=== PATIENT | female | born 2000 | race Caucasian/White ===

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

== ENCOUNTER 2018-08-21 17:32 | Emergency (ER) | payer BC ==
[2018-08-21 18:09] VITALS: BP 124/80
--- NOTE | 2018-08-21 18:28 | ED ---
Throat Pain/Nasal Congestion - HPI Summary HPI Summary: 18 yr old female with the complaint of sore throat. Onset four days ago. The patient has sore throat, and no other symptoms. She denies runny nose, post nasal drip, cough. She has not had fever. She has not had drooling. - History of Current Complaint Chief Complaint: UCGeneralIllness Time Seen by Provider: 08/21/18 18:13 - Allergies/Home Medications Allergies/Adverse Reactions: Allergies Allergy/AdvReac Type Severity Reaction Status Date / Time ibuprofen Allergy Anaphylatic Verified 08/21/18 18:10 Shock Home Medications: Home Medications Acetaminophen [Tylenol Extra Strength] 1,000 mg PO DAILY 08/21/18 [History Confirmed 08/21/18] PMH/Surg Hx/FS Hx/Imm Hx Infectious Disease History: No Infectious Disease History: Denies: Traveled Outside the [place] in Last 30 Days - Family History Known Family History: Positive: None Negative: Respiratory Disease - Social History Occupation: Student Alcohol Use: None Substance Use Type: Reports: None Smoking Status (MU): Never Smoked Tobacco Have You Smoked in the Last Year: No Review of Systems Constitutional: Negative Positive: Sore Throat All Other Systems Reviewed And Are Negative: Yes Physical Exam Triage Information Reviewed: Yes Vital Signs On Initial Exam: Initial Vitals Temp Pulse Resp BP Pulse Ox 99.0 F 97 16 124/80 100 08/21/18 18:06 08/21/18 18:06 08/21/18 18:06 08/21/18 18:06 08/21/18 18:06 Vital Signs Reviewed: Yes Appearance: Positive: Well-Appearing, No Pain Distress Skin: Positive: Warm, Skin Color Reflects Adequate Perfusion Head/Face: Positive: Normal Head/Face Inspection Eyes: Positive: EOMI, DIAMANTE ENT: Positive: Pharyngeal erythema, TMs normal. Negative: Nasal congestion, Nasal drainage Neck: Positive: Nontender, No Lymphadenopathy Respiratory/Lung Sounds: Positive: Clear to Auscultation, Breath Sounds Present Cardiovascular: Positive: RRR. Negative: Murmur Abdomen Description: Negative: Distended Musculoskeletal: Positive: Strength/ROM Intact Neurological: Positive: Sensory/Motor Intact, Alert, Oriented to Person Place, Time, CN Intact II-III, Normal Gait, Speech Normal Psychiatric: Positive: Normal Diagnostics - Vital Signs Vital Signs Temp Pulse Resp BP Pulse Ox 08/21/18 18:06 99.0 F 97 16 124/80 100 - Laboratory Lab Statement: Any lab studies that have been ordered have been reviewed, and results considered in the medical decision making process. EENT Course/Dx - Course Course Of Treatment: 18 yr old female with sore throat. Rapid strep is neg. DC home. - Diagnoses Provider Diagnoses: Upper respiratory infection Discharge - Sign-Out/Discharge Documenting (check all that apply): Patient Departure All imaging exams completed and their final reports reviewed: No Studies - Discharge Plan Condition: Good Disposition: HOME Patient Education Materials: Upper Respiratory Infection (ED) Referrals: No Primary Care Phys,NOPCP [Primary Care Provider] - [facility] [Outside] - 2 Days - Billing Disposition and Condition Condition: GOOD Disposition: Home
== END 2018-08-21 19:08 | disposition home or self-care (01) ==
LOC: UCCORT 17:32
DX: J06.9 Acute upper respiratory infection, unspecified (principal); Z88.8 Allergy status to other drugs, medicaments and biological substances
CPT/HCPCS: 87651; 99211; G0463

== ENCOUNTER 2019-06-06 15:53 | Emergency (ER) | payer BC ==
[2019-06-06 17:07] VITALS: BP 118/64
--- NOTE | 2019-06-06 17:21 | UC ---
Complaint Female HPI - HPI Summary HPI Summary: Recently tx'd for BV by KETTLE COOK last week but had intercourse during tx w/out condom and had her menses. She was also given a cream for vaginal fungus. Pt has a little odor, discharge still there and has some pain with urination. Also c/o itchiness. - History Of Current Complaint Chief Complaint: UCGeneralIllness Stated Complaint: PERSONAL Time Seen by Provider: 06/06/19 17:11 Hx Obtained From: Patient Hx Last Menstrual Period: 08/21/18 Pain Intensity: 0 Aggravating Factor(s): [place] Alleviating Factor(s): Nothing - Allergies/Home Medications Allergies/Adverse Reactions: Allergies Allergy/AdvReac Type Severity Reaction Status Date / Time ibuprofen Allergy Anaphylatic Verified 06/06/19 17:07 Shock PMH/Surg Hx/FS Hx/Imm Hx - Additional Past Medical History Additional PMH: no chronic illness Previously Healthy: Yes - Surgical History Surgical History: None - Family History Known Family History: Positive: None Negative: Respiratory Disease - Social History Alcohol Use: Weekly Substance Use Type: None Smoking Status (MU): Never Smoked Tobacco Have You Smoked in the Last Year: No - Immunization History Most Recent Influenza Vaccination: No flu vaccine Vaccination Up to Date: Yes Review of Systems All Other Systems Reviewed And Are Negative: Yes Constitutional: Negative: Fever Gastrointestinal: Negative: Abdominal Pain Genitourinary: Positive: Vaginal/Penile Burning, Vaginal/Penile Itching, Vaginal /Penile Discharge, Vaginal/Penile Pain. Negative: Dysuria, Vaginal/Penile Tenderness, Abnormal Bleeding Physical Exam Triage Information Reviewed: Yes Appearance: Well-Appearing Vital Signs: Initial Vital Signs Temp 98.6 F 06/06/19 17:01 Pulse 69 06/06/19 17:01 Resp 18 06/06/19 17:01 BP 118/64 06/06/19 17:01 Pulse Ox 99 06/06/19 17:01 Pelvic Exam: Positive: Other - declined Complaint Female Dx - Course Course Of Treatment: Vaginitis after being tx'd for BV but was only tx'd for 5 days and had unprotected intercourse during tx. Plan is to retreat, discussed no intercourse for now. vitals good. declined gu exam and chlam/daquan exam stating it was neg last week. - Differential Dx/Diagnosis Differential Diagnosis/HQI/PQRI: Urinary Tract Infection, Other Provider Diagnosis: Vaginitis Discharge ED - Sign-Out/Discharge Documenting (check all that apply): Patient Departure All imaging exams completed and their final reports reviewed: No Studies - Discharge Plan Condition: Good Disposition: HOME Prescriptions: metroNIDAZOLE [Metronidazole 0.75 % gel] 1 applic VAGINAL BEDTIME 7 Days #7 gel metroNIDAZOLE [Metronidazole 0.75 % gel] 1 applic VAGINAL BEDTIME 7 Days #7 gel Patient Education Materials: Bacterial Vaginosis (ED) Referrals: No Primary Care Phys,NOPCP [Primary Care Provider] - Additional Instructions: It seems likely your bacterial vaginosis was incompletely treated so we will retreat again. - Billing Disposition and Condition Condition: GOOD Disposition: Home
== END 2019-06-06 17:32 | disposition home or self-care (01) ==
LOC: UCCORT 15:53
DX: N76.0 Acute vaginitis (principal); Z88.6 Allergy status to analgesic agent
CPT/HCPCS: 99212; G0463